=== PATIENT | female | born 1960 | race Caucasian/White ===

== ENCOUNTER 2019-05-27 05:44 | Day surgery (SDC) | payer BC ==
[~2019-05-27] VITALS: Ht 157.5 cm; Wt 60.4 kg
[~2019-05-27 05:44] MED LIST: THYROID MED
[2019-05-27 07:30] VITALS: BP 132/72; PULSE 56; RESP 18; Ht 157.5 cm; Wt 60.4 kg
[2019-05-27] MEDS ORDERED: GLYCOPYRROLATE 0.4 MG INJ ONE (07:30)
[2019-05-27] MEDS ORDERED: LIDOCAINE 2% (SDV) 5 ML INJ ONE (07:30)
[2019-05-27] MEDS ORDERED: PROPOFOL 40 ML ONE (07:30)
[2019-05-27 08:33] VITALS: BP 119/66; RESP 25
== END 2019-05-27 14:07 | disposition home or self-care (01) ==
LOC: GIL 05:44
PROVIDERS: ATTEND Internal Medicine Gastroenterology
DX: E03.9 Hypothyroidism, unspecified (principal)
CPT/HCPCS: 43239; 88305; Z7610